=== PATIENT | male | born 1995 | race Caucasian/White ===

== ENCOUNTER 2023-04-10 23:33 | Emergency (ER) | payer MEDICAID ==
[~2023-04-10] VITALS: Ht 177.8 cm; Wt 83.9 kg
[2023-04-10 23:47] VITALS: BP_SYST 133; PULSE 94; RESP 16; TEMP 98.4; O2SAT 98
[2023-04-11] MEDS ORDERED: BACITRACIN 1 GM OINT TP ONE (00:07)
[2023-04-11] MEDS ORDERED: BACI15OI13 TP (00:18)
[2023-04-11 00:36] VITALS: BP_SYST 133; PULSE 94; RESP 16; TEMP 98.4; O2SAT 98
== END 2023-04-11 00:36 | disposition home or self-care (01) ==
LOC: SED 23:33
DX: T22.131A Burn of first degree of right upper arm, initial encounter (principal); Z79.899 Other long term (current) drug therapy; X08.8XXA Exposure to other specified smoke, fire and flames, initial encounter; Y93.89 Activity, other specified; Y92.89 Other specified places as the place of occurrence of the external cause; Y99.8 Other external cause status
CPT/HCPCS: 99282